=== PATIENT | male | born 1975 | race Caucasian/White ===

== ENCOUNTER 2018-02-13 09:58 | Emergency (ER) | payer OTHER ==
[~2018-02-13] VITALS: Ht 177.8 cm; Wt 61.2 kg
[~2018-02-13 09:58] MED LIST: ACETAMINOPHEN-1 EAC1 PO; AMOXICILLIN 50500 MG PO; AMOXICILLIN500 M1 PO; AMOXICILLIN875 MG PO; CIPROFLOXIN HC2.5 M1 OPHTHALMIC; CIPROFLOXIN HC2.5 ML OP; CLEOCIN HCL300 MG PO; FLOXIN OP; GENTAMICIN SU3 MG/ML OPHTHALMIC; IBUPROFEN 800800 M1; IBUPROFEN 800800 M1 PO; KEFLEX500 MG PO; LIDOCAINE VISC100 M1 SWISH&SPIT; MEDROLDOSEPACK PO; MUCINEX1200 MG PO; NAPROSYN500 MG PO; NOHOMEMEDICATIONS; NORFLEX100 MG PO; PENICILLIN V P500 MG PO; PENICILLIN VK250 MG PO; PENICILLIN VK500 MG PO; PERCOCET 5-3251 EACH PO; PERCOCET PO; PREDNISONE 20 M20 MG PO; PREDNISONE50 MG PO; PROAIR HFA8.5 GM INH; TOBRAMYCIN SULFA5 ML OPHTHALMIC; TRAMADOL 50 MG50 MG PO; ULTRAM 50MG TAB50 MG PO; ZPAK PO
[2018-02-13] MEDS ORDERED: HYDROCORTISONE30 G9 RECTAL (11:09)
== END 2018-02-13 11:20 | disposition home or self-care (01) ==
LOC: M.ERS 09:58
DX: K64.4 Residual hemorrhoidal skin tags (principal); F17.210 Nicotine dependence, cigarettes, uncomplicated; Z88.8 Allergy status to other drugs, medicaments and biological substances

== ENCOUNTER 2018-08-22 07:00 | Emergency (ER) | payer OTHER ==
[~2018-08-22] VITALS: Ht 177.8 cm; Wt 61.2 kg
[~2018-08-22 07:00] MED LIST changes: +HYDROCORTISONE30 G9 RECTAL
[2018-08-22 07:55] VITALS: BP 123/72
== END 2018-08-22 07:55 | disposition home or self-care (01) ==
LOC: M.ERS 07:00
DX: H11.31 Conjunctival hemorrhage, right eye (principal); F17.210 Nicotine dependence, cigarettes, uncomplicated; Z88.8 Allergy status to other drugs, medicaments and biological substances

== ENCOUNTER 2018-08-26 18:06 | Emergency (ER) | payer OTHER ==
[~2018-08-26] VITALS: Ht 177.8 cm; Wt 63.5 kg
[2018-08-26 18:19] VITALS: BP 124/63
[2018-08-26] MEDS ORDERED: FLEXERIL PO (18:32)
[2018-08-26] MEDS ORDERED: ULTRAM 50MG TAB50 MG PO (18:32)
[2018-08-26] MEDS ORDERED: MEDROLDOSEPACK PO (18:32)
== END 2018-08-26 18:41 | disposition home or self-care (01) ==
LOC: M.ERS 18:06
DX: M54.31 Sciatica, right side (principal); F17.210 Nicotine dependence, cigarettes, uncomplicated; Z88.5 Allergy status to narcotic agent

== ENCOUNTER 2018-09-03 20:42 | Emergency (ER) | payer OTHER ==
[~2018-09-03] VITALS: Ht 177.8 cm; Wt 63.5 kg
[~2018-09-03 20:42] MED LIST changes: +FLEXERIL PO
[2018-09-03 22:20] VITALS: BP 122/64
== END 2018-09-03 22:20 | disposition home or self-care (01) ==
LOC: M.ERS 20:42
DX: S76.111A Strain of right quadriceps muscle, fascia and tendon, initial encounter (principal); F17.210 Nicotine dependence, cigarettes, uncomplicated; Z88.5 Allergy status to narcotic agent

== ENCOUNTER 2019-02-12 15:38 | Emergency (ER) | payer OTHER ==
[~2019-02-12] VITALS: Ht 177.8 cm; Wt 61.2 kg
[2019-02-12 15:51] VITALS: BP 116/68
[2019-02-12] MEDS ORDERED: CIPROFLOXIN HC2.5 M1 OPHTHALMIC (17:10)
[2019-02-12] MEDS ORDERED: PENICILLIN V P500 MG PO (17:10)
== END 2019-02-12 17:23 | disposition home or self-care (01) ==
LOC: M.ERS 15:38
DX: S05.01XA Injury of conjunctiva and corneal abrasion without foreign body, right eye, initial encounter (principal); F17.210 Nicotine dependence, cigarettes, uncomplicated; Z88.5 Allergy status to narcotic agent; X58.XXXA Exposure to other specified factors, initial encounter; Y92.89 Other specified places as the place of occurrence of the external cause; Y93.89 Activity, other specified; Y99.0 Civilian activity done for income or pay

== ENCOUNTER 2020-07-02 21:31 | Emergency (ER) | payer OTHER ==
[~2020-07-02] VITALS: Ht 177.8 cm; Wt 61.2 kg
[2020-07-02 22:42] VITALS: BP 122/64
== END 2020-07-02 22:42 | disposition home or self-care (01) ==
LOC: M.ERS 21:31
DX: L72.3 Sebaceous cyst (principal); Z88.5 Allergy status to narcotic agent; F17.210 Nicotine dependence, cigarettes, uncomplicated

== ENCOUNTER 2020-08-03 08:19 | Emergency (ER) | payer OTHER ==
[~2020-08-03] VITALS: Ht 177.8 cm; Wt 63.5 kg
[2020-08-03] MEDS ORDERED: TRAMADOL 50 MG50 MG PO (09:27)
[2020-08-03] MEDS ORDERED: IBUPROFEN 800800 M1 PO (09:27)
[2020-08-03 09:58] VITALS: BP 133/76
== END 2020-08-03 10:12 | disposition home or self-care (01) ==
LOC: M.ERS 08:19
DX: S20.211A Contusion of right front wall of thorax, initial encounter (principal); F17.210 Nicotine dependence, cigarettes, uncomplicated; W01.0XXA Fall on same level from slipping, tripping and stumbling without subsequent striking against object, initial encounter; Y93.89 Activity, other specified; Y92.89 Other specified places as the place of occurrence of the external cause; Y99.8 Other external cause status

== ENCOUNTER 2021-03-05 07:08 | Emergency (ER) | payer OTHER ==
[~2021-03-05] VITALS: Ht 177.8 cm; Wt 59.9 kg
[2021-03-05] MEDS ORDERED: ULTRAM 50MG TAB50 MG PO (09:53)
[2021-03-05 10:17] VITALS: BP 129/73
== END 2021-03-05 10:21 | disposition home or self-care (01) ==
LOC: M.ERS 07:08
DX: S93.601A Unspecified sprain of right foot, initial encounter (principal); F17.210 Nicotine dependence, cigarettes, uncomplicated; Z88.8 Allergy status to other drugs, medicaments and biological substances; W22.8XXA Striking against or struck by other objects, initial encounter; Y93.89 Activity, other specified; Y92.89 Other specified places as the place of occurrence of the external cause; Y99.8 Other external cause status